=== PATIENT | female | born 1980 | race Asian ===

== ENCOUNTER 2020-07-31 20:02 | Emergency (ER) | payer OTHER ==
[~2020-07-31] VITALS: Ht 154.9 cm; Wt 33.1 kg
[2020-07-31 20:22] VITALS: BP 123/73
--- NOTE | 2020-07-31 20:22 | NUR ---
ED Nurse Note: Pt walked into ED c/o rectal pain for 1 month. Pt has diffculty deficating and bloody stools. Pt stated she has loss of apptitate and noticed weight loss without trying. Pt stated nausea and dizziness, fever, chills.
--- NOTE | 2020-07-31 20:41 | Emergency Room Report ---
History of Present Illness General Chief Complaint: Female Urogenital Problems Source: Patient, Family Member, Medical Record Present Illness HPI Disclaimer: Please note that this report is being documented using [employer] technology. This can lead to erroneous entry secondary to incorrect interpretation by the dictating instrument. HPI: 40-year-old female presents with weight loss, difficulty defecating. Pres ents with her sister who appears to be her primary leather belt loop cutter. States that the patient has been losing weight approximately 35 pounds over the past month. Difficulty defecating stating due to pain. Reports frequent constipation. Sister says she has not been eating for the past 3 weeks. Was seen in another emergency department diagnosed with colitis. Has not yet seen a PMD. Patient does not provide any other information allows her sister to speak for her. Sister states the patient has no other medical issues. PMH: Denies PSH: Denies Allergies: Denies Social Hx: Denies Allergies: Coded Allergies: No Known Allergies (Unverified , 07/31/20) COVID-19 Screening Contact w/high risk pt: No Experienced COVID-19 symptoms?: No COVID-19 Testing performed DIRECTOR OF NUCLEAR MEDICINE: No Patient History Last Menstrual Period: 06/2020 Nursing Documentation-PMH Past Medical History: No Stated History Review of Systems All Other Systems: negative except mentioned in HPI Physical Exam Vital Signs Date Time Temp Pulse Resp B/P (MAP) Pulse Ox O2 Delivery O2 Flow Rate FiO2 07/31/20 20:16 98.4 99 14 123/73 (90) 97 Room Air General: Awake, avoidant gaze, no acute distress HEENT: NC/AT. EOMI. Cardiovascular: RRR. S1 and S2 normal. No murmur appreciated Resp: Normal work of breathing. No cough, wheezing or crackles appreciated Abdomen: Abdomen is soft, nondistended. Nontender Skin: Intact. No abrasions, laceration or rash over the exposed skin MSK: Decreased muscle bulk diffusely, cachectic. Moving all extremities. Neuro: Awake and alert. Avoidant gaze. Medical Decision Making Diagnostic Impression: Primary Impression: Constipation Additional Impression: Rectal pain ER Course Is a 40-year-old female presenting for evaluation of 1 month constipation, pain with defecation, intermittent rectal bleeding and weight loss. Differential includes was not limited to constipation, impaction, ileus, diverticulitis, hemorrhoids, malnutrition, dehydration, obstruction among others. Patient has a stable vital signs. Had plan for labs and CT scan of the abdomen. She was amenable to labs however changed her mind and is now refusing CT scan. She also refused rectal exam for hemorrhoids. Labs are within normal limits. She is requesting stool softener referral to gastroenterology which I will provide. Stable for outpatient follow-up. Return precautions discussed with patient and family. Laboratory Tests Test 07/31/20 20:45 White Blood Count 7.0 K/UL (4.8-10.8) Red Blood Count 4.28 M/UL (4.20-5.40) Hemoglobin 12.0 G/DL (12.0-16.0) Hematocrit 37.7 % (37.0-47.0) Mean Corpuscular Volume 88 FL (80-99) Mean Corpuscular Hemoglobin 28.0 PG (27.0-31.0) Mean Corpuscular Hemoglobin Concent 31.8 G/DL (32.0-36.0) L Red Cell Distribution Width 13.9 % (11.6-14.8) Platelet Count 273 K/UL (150-450) Mean Platelet Volume 6.7 FL (6.5-10.1) Neutrophils (%) (Auto) 45.3 % (45.0-75.0) Lymphocytes (%) (Auto) 43.3 % (20.0-45.0) Monocytes (%) (Auto) 7.3 % (1.0-10.0) Eosinophils (%) (Auto) 2.7 % (0.0-3.0) Basophils (%) (Auto) 1.4 % (0.0-2.0) Urine Color Yellow Urine Appearance Clear Urine pH 6.5 (4.5-8.0) Urine Specific [place] 1.015 (1.005-1.035) Urine Protein 1+ (NEGATIVE) H Urine Glucose (UA) Negative (NEGATIVE) Urine Ketones 2+ (NEGATIVE) H Urine Blood Negative (NEGATIVE) Urine Nitrite Negative (NEGATIVE) Urine Bilirubin Negative (NEGATIVE) Urine Urobilinogen 1 MG/DL (0.0-1.0) H Urine Leukocyte Esterase 1+ (NEGATIVE) H Urine RBC 0-2 /HPF (0 - 2) Urine WBC 2-4 /HPF (0 - 2) Urine Squamous Epithelial Cells Few /LPF (NONE/OCC) Urine Bacteria Few /HPF (NONE) Urine HCG, Qualitative Negative (NEGATIVE) Sodium Level 138 MMOL/L (136-145) Potassium Level 3.8 MMOL/L (3.5-5.1) Chloride Level 107 MMOL/L (98-107) Carbon Dioxide Level 27 MMOL/L (21-32) Anion Gap 4 mmol/L (5-15) L Blood Urea Nitrogen 17 mg/dL (7-18) Creatinine 0.7 MG/DL (0.55-1.30) Estimated Glomerular Filtration Rate > 60 mL/min (>60) Glucose Level 105 MG/DL (74-106) Calcium Level 8.5 MG/DL (8.5-10.1) Phosphorus Level 4.2 MG/DL (2.5-4.9) Magnesium Level 2.1 MG/DL (1.8-2.4) Total Bilirubin 0.2 MG/DL (0.2-1.0) Aspartate Amino Transferase (AST) 18 U/L (15-37) Alanine Aminotransferase (ALT) 9 U/L (12-78) L Alkaline Phosphatase 34 U/L (46-116) L Total Protein 6.0 G/DL (6.4-8.2) L Albumin 3.3 G/DL (3.4-5.0) L Globulin 2.7 g/dL Albumin/Globulin Ratio 1.2 (1.0-2.7) Lipase 207 U/L (73-393) Thyroid Stimulating Hormone (TSH) 2.083 uiU/mL (0.358-3.740) Last Vital Signs Date Time Temp Pulse Resp B/P (MAP) Pulse Ox O2 Delivery O2 Flow Rate FiO2 07/31/20 20:22 98.4 88 14 123/73 97 Room Air Disposition: HOME, SELF-CARE Condition: Stable Scripts Docusate Sodium* (DOCUSATE SODIUM*) 100 Mg Capsule 100 MG ORAL THREE TIMES A DAY, #30 CAP Prov: Hima Cherry MD 07/31/20 Hima Cherry MD Jul 31, 2020 20:41
[2020-07-31] MEDS ORDERED: Omnipaque-300 100ml vial INJ PRN (20:45)
--- NOTE | 2020-07-31 20:45 | NUR ---
ED Nurse Note: iv access established. blood and urine collected; sent down to lab.
[2020-07-31 21:49] LABS: BASOPHILS % (AUTO) 1.4 % (0.0-2.0); EOSINOPHILS % (AUTO) 2.7 % (0.0-3.0); HEMATOCRIT 37.7 % (37.0-47.0); LYMPHOCYTES % (AUTO) 43.3 % (20.0-45.0); MEAN CORPUSCULAR VOLUME 88 FL (80-99); MONOCYTES % (AUTO) 7.3 % (1.0-10.0); NEUTROPHILS % (AUTO) 45.3 % (45.0-75.0); PLATELET COUNT 273 K/UL (150-450); RED BLOOD COUNT 4.28 M/UL (4.20-5.40); RED CELL DISTRIBUTION WIDTH 13.9 % (11.6-14.8)
[2020-07-31 21:57] LABS: APPEARANCE,URINE CLEAR; BILIRUBIN, URINE NEGATIVE (NEGATIVE); GLUCOSE, URINE (UA) NEGATIVE (NEGATIVE); KETONES,URINE 2+ (NEGATIVE); LEUKOCYTE ESTERASE ,URINE 1+ (NEGATIVE); NITRITE,URINE NEGATIVE (NEGATIVE); PH,URINE 6.5 (4.5-8.0); PROTEIN,URINE 1+ (NEGATIVE); UROBILINOGEN,URINE 1 MG/DL (0.0-1.0)
[2020-07-31 22:00] VITALS: BP 131/68
[2020-07-31 22:00] LABS: COLOR,URINE YELLOW
[2020-07-31 22:01] LABS: ANION GAP 4 mmol/L (5-15); BLOOD UREA NITROGEN 17 mg/dL (7-18); CALCIUM 8.5 MG/DL (8.5-10.1); CARBON DIOXIDE 27 MMOL/L (21-32); CHLORIDE 107 MMOL/L (98-107); CREATININE 0.7 MG/DL (0.55-1.30); POTASSIUM 3.8 MMOL/L (3.5-5.1); SODIUM 138 MMOL/L (136-145)
[2020-07-31 22:14] LABS: ALANINE AMINOTRANSFERASE 9 U/L (12-78); ALBUMIN 3.3 G/DL (3.4-5.0); ALBUMIN/GLOBULIN RATIO 1.2 (1.0-2.7); ALKALINE PHOSPHATASE 34 U/L (46-116); ASPARTATE AMINO TRANSFERASE 18 U/L (15-37); BILIRUBIN,TOTAL 0.2 MG/DL (0.2-1.0); PHOSPHORUS 4.2 MG/DL (2.5-4.9)
--- NOTE | 2020-07-31 22:45 | NUR ---
ED Nurse Note: patient refusing IV access, ct and rectal exam. explained risk and benefits x3 with ermd at bedside. removed IV per ermd
[2020-07-31 23:00] VITALS: BP 122/68
[2020-07-31] MEDS ORDERED: DOCUSATE SODIU100 MG ORAL (23:00)
--- NOTE | 2020-07-31 23:00 | NUR ---
ER DISCHARGE NOTE: Patient is cleared to be discharged per ERMD, pt is aox4, on room air, with stable vital signs. pt was given dc and prescription instructions, pt was able to verbalize understanding, pt id band removed. pt is able to ambulate with steady gait. pt took all belongings. accompanied by family member.
== END 2020-07-31 23:00 | disposition home or self-care (01) ==
LOC: EMR 20:10
DX: K59.00 Constipation, unspecified (principal); R52 Pain, unspecified; R63.4 Abnormal weight loss; Z68.1 Body mass index [BMI] 19.9 or less, adult
CPT/HCPCS: 36415; 80053; 81003; 81025; 83690; 83735; 84100; 84443; 85025; 99283; J7030